=== PATIENT | female | born 1930 | race African-American/Black ===

== ENCOUNTER 2020-05-22 12:24 | Emergency (ER) | payer MEDICARE ==
[~2020-05-22] VITALS: Ht 160 cm; Wt 66.7 kg
[2020-05-22 13:04] LABS: ABSOLUTE NEUTROPHILS 4.4 thou/uL (1.4-8.2); BASOPHILS 0.5 % (0.0-2.0); EOSINOPHILS 3.2 % (0.0-3.0); HEMATOCRIT 39.6 % (37.0-47.0); HEMOGLOBIN 13.3 gm/dL (12.0-15.0); MCH 34.4 pg (26.0-34.0); MCHC 33.5 g/dL (28.0-37.0); MCV 102.8 fL (80.0-100.0); MONOCYTES 7.7 % (1.0-8.0); PLATELET COUNT 322 thou/uL (150-400); POLYS 71.6 % (36.0-66.0); RBC 3.85 mil/uL (4.20-5.00); RDW 13.7 % (10.5-14.5); WBC 6.1 thou/uL (4.0-11.0)
[2020-05-22 13:10] LABS: ANION GAP 10 mmol/L (7-16); BUN 14 mg/dL (7-18); CALCIUM 9.5 mg/dL (8.5-10.1); CHLORIDE 102 mmol/L (98-107); CO2 31 mmol/L (21-32); GLUCOSE 87 mg/dL (74-106); SODIUM 143 mmol/L (136-145)
[2020-05-22 13:21] LABS: ALBUMIN 3.4 g/dL (3.4-5.0); SGOT 20 U/L (15-37); SGPT 15 U/L (30-65); TOTAL BILIRUBIN 0.3 mg/dL (0.2-1.0); TOTAL PROTEIN 7.7 g/dL (6.4-8.2); TROPONIN-I <0.06 ng/mL (<0.06)
[2020-05-22 14:18] VITALS: BP 120/79
--- NOTE | 2020-05-23 07:54 | EKG ---
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: : 1930 Requested By: Guerrero Henley Order Number: [id number] MD: Neri Murphy Measurements Intervals [place] Rate: 76 P: -1 HI: 149 QRS: 6 QRSD: 81 T: 35 QT: 429 QTc: 483 Interpretive Statements Sinus rhythm Abnormal R-wave progression, early transition Borderline prolonged QT interval No previous ECG available for comparison Electronically Signed On 05-23-2020 7:54:31 [employer] by Neri Murphy [email or web address] <ELECTRONICALLY SIGNED> By: Neri Murphy MD, FACC 05/23/20 [id number] Neri Murphy MD, LOCATED WITHIN [facility] /EPI
== END 2020-05-22 14:18 | disposition home or self-care (01) ==
LOC: ER 12:24
PROVIDERS: Emergency Medicine
DX: R60.0 Localized edema (principal); R79.89 Other specified abnormal findings of blood chemistry; I10 Essential (primary) hypertension